=== PATIENT | male | born 1960 | race Two or more races ===

== ENCOUNTER 2022-05-19 19:40 | Emergency (ER) | payer OTHER ==
[~2022-05-19] VITALS: Ht 177.8 cm; Wt 92.5 kg
[2022-05-19] MEDS ORDERED: ATORVASTATIN CA40 MG (20:32)
[2022-05-19] MEDS ORDERED: AMLODIPINE 5 MG. (20:33)
[2022-05-19] MEDS ORDERED: ZESTRIL40 M1 (20:33)
[2022-05-19] MEDS ORDERED: CHLORTHALIDONE25 MG (20:34)
[2022-05-19] MEDS ORDERED: JANTOVEN1 MG (20:35)
== END 2022-05-19 21:27 | disposition home or self-care (01) ==
LOC: ER 19:40
DX: U07.1 COVID-19 (principal); I10 Essential (primary) hypertension

== ENCOUNTER 2022-05-21 08:45 | Outpatient (CLI) | payer OTHER ==
[~2022-05-21 08:45] MED LIST: AMLODIPINE 5 MG.; ATORVASTATIN CA40 MG; CHLORTHALIDONE25 MG; JANTOVEN1 MG; ZESTRIL40 M1
== END 2022-05-21 09:20 | disposition home or self-care (01) ==
LOC: ASH CLINIC 08:45
PROVIDERS: ATTEND General Practice
DX: U07.1 COVID-19 (principal)